=== PATIENT | female | born 1985 | race Caucasian/White ===

== ENCOUNTER 2017-03-05 06:11 | Inpatient (IN) | payer OTHER ==
[2017-03-05 06:42] VITALS: BMI 35.5
--- NOTE | 2017-03-05 08:21 | PRG ---
DATE OF SERVICE: 03/05/2017 PRIMARY OB: Dr. Brandon Mcintosh CHIEF COMPLAINT: Abdominal pains. HISTORY OF PRESENT ILLNESS: The patient is a 31-year-old female with an intrauterine at 39 weeks and 2 days who was seen yesterday for uterine contractions and sent home. She has returned with increasing pain and frequency with her contractions since about 3:00 this morning. She denies any leakage of fluid, but has had some bloody show. PAST MEDICAL HISTORY: Recurrent loss. PAST SURGICAL HISTORY: She had an appendectomy and and LEEP procedure at age 15. SOCIAL HISTORY: Denies drug, alcohol or tobacco use. 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 ALLERGIES: She reports an allergy to Prozac or other SSRI and reports having had a seizure with it. OB LABS: She is GBS negative. One hour Glucola was 140 with a normal 3 hour to follow. Third trimester HIV is nonreactive. Hepatitis B surface antigen is nonreactive, HIV first trimester is nonreactive, RPR first trimester is nonreactive. She is rubella immune. GC and chlamydia are negative. MEDICATIONS: Patient is on vitamins and a baby aspirin. REVIEW OF SYSTEMS: Per HPI. PHYSICAL EXAMINATION: VITAL SIGNS: Blood pressure is 125/80, heart rate of 93, respiratory rate of 18 , satting 97% on room air, temperature 99.0. GENERAL: She appears to be in some distress, particularly with the contractions. She is alert and oriented, and cooperative and pleasant to interact with. HEENT: Normocephalic, atraumatic. LUNGS: Clear to auscultation bilaterally. HEART: Regular rate and rhythm. ABDOMEN: Soft in between contractions. EXTREMITIES: Nontender, nonedematous. CERVICAL EXAM: 3, 50 and 0 station. heart tracing for threatened labor, baseline is noted to be in the 120s with moderate long-term variability, positive accelerations, no decelerations. Her contractions are about every 3-4 minutes apart now. ASSESSMENT AND PLAN: The patient is a 31-year-old female with an intrauterine at 39 weeks and 2 days who is here having painful contractions and has made cervical change since yesterday. She has a history of and desires a trial of labor after . Her doctor, Dr. Mcintosh, has been notified of her presence so we will plan on reexamining her in a couple hours. She has been offered pain medication and has also been given some instructions with the nurse present about how she may be able to improve her pain with position changes in and maneuvers as she has been experiencing a lot of back labor. Dr. Corea will be coming on as the OB Hospitalist by the time the patient is reevaluated. ROSA MARIA
[2017-03-05] MEDS ORDERED: Ibuprofen 800 MG TAB PO PRN (13:42)
[2017-03-05] MEDS ORDERED: LR / Pitocin 40 units/1000 ml 1,000 ML IV PRN (13:42)
[2017-03-05] MEDS ORDERED: Promethazine HCl 25 MG/ML VIAL IM PRN ×2 (13:42→15:45)
[2017-03-05] MEDS ORDERED: Lidocaine 1% (PF) 30 ML VIAL SC PRN (13:42)
[2017-03-05] MEDS ORDERED: Ondansetron HCl/PF 4 MG/2 ML Vial IVP PRN ×2 (13:42→15:45)
[2017-03-05] MEDS ORDERED: HYDROcodone/Acetaminophen 5/325 mg Tablet PO PRN (13:42)
[2017-03-05] MEDS ORDERED: Misoprostol 200 MCG TAB PR PRN (13:42)
[2017-03-05] MEDS ORDERED: Fentanyl 4 mcg/Marc 0.1% Cadd 100 ML ONE (14:03)
[2017-03-05] MEDS: Lactated Ringer's 1,000 ML IV SCH ×2 (14:05→15:59)
[2017-03-05 14:19] LABS: Mean Platelet Volume 9.8 fL (7.4-10.4); Red Blood Cell (RBC) Count 4.32 mill/uL (4.20-5.40); White Blood Cell (WBC) Count 11.8 thou/uL (4.8-10.8)
[2017-03-05] MEDS ORDERED: Bupivacaine 0.75% W/DEXTROSE 8.25% 2 ML AMP ONE (15:07)
[2017-03-05] MEDS ORDERED: Fentanyl 100 MCG/2 ML VIAL ONE ×2 (15:07→21:24)
[2017-03-05] MEDS: Fentanyl 4mcg/Marcaine 0.1% Cassette 100 ML EPIDURAL SCH ×2 (15:43→22:45)
[2017-03-05] MEDS ORDERED: diphenhydrAMINE HCl 50 MG/ML 1 ML VIAL IVP PRN (15:45)
[2017-03-05] MEDS ORDERED: Eucerin (Mineral Oil/Petrolatum,White) 30 gm Jar TOP PRN (15:45)
[2017-03-05] MEDS ORDERED: Acetaminophen 325 MG TAB PO PRN (15:45)
[2017-03-05] MEDS ORDERED: Lactated Ringer's 500 ML IV PRN (15:45)
[2017-03-05] MEDS ORDERED: Naloxone HCl 0.4 mg/ml Vial IVP PRN ×2 (15:45)
[2017-03-05] MEDS ORDERED: Communication Order-Pharmacy FS SCH (15:45)
[2017-03-05] MEDS ORDERED: ePHEDrine/0.9% NaCl/PF SYRINGE 50 mg/10 ml SLOW IVP PRN (15:45)
[2017-03-05] MEDS ORDERED: Bupivacaine 0.75% W/DEXTROSE 8.25% 2 ML AMP NERVE BLCK ONE (15:46)
[2017-03-05] MEDS ORDERED: Fentanyl 100 MCG/2 ML VIAL I-THECAL ONE (15:46)
[2017-03-06] MEDS: Lactated Ringer's 1,000 ML IV SCH (00:04)
[2017-03-06] MEDS: Fentanyl 4mcg/Marcaine 0.1% Cassette 100 ML EPIDURAL SCH (04:02)
[2017-03-06] MEDS ORDERED: LR / Pitocin 40 units/1000 ml 1,000 ML IV SCH (05:59)
[2017-03-06] MEDS ORDERED: diphenhydrAMINE HCl 25 MG CAP PO PRN (05:59)
[2017-03-06] MEDS ORDERED: Adacel (T-DAP) 0.5 ML VIAL IM ONE (05:59)
[2017-03-06] MEDS ORDERED: Bisacodyl 10 MG SUPP PR PRN (05:59)
[2017-03-06] MEDS ORDERED: Milk Of Magnesia 30 ML UDCUP PO PRN (05:59)
[2017-03-06] MEDS ORDERED: Lanolin Ointment 7 GM TUBE TOP PRN (05:59)
--- NOTE | 2017-03-06 06:21 | OP ---
DATE OF PROCEDURE: 03/06/2017 at 5:00 a.m. PREOPERATIVE DIAGNOSES: 1. Term . 2. Active labor. POSTOPERATIVE DIAGNOSES: 1. Term . 2. Active labor. PROCEDURE: Vacuum extraction with repair of third degree midline episiotomy. ANESTHESIA: Epidural. SURGEON: Brandon Mcintosh M.D. PROCEDURE: This 31-year-old white female, taken to delivery room, complete and pushing. The patient prepped and draped sterilely. With the use of a vacuum delivered the baby from an OA positi on. Baby did breathe and cry vigorously upon delivery. One pull was all that was necessary. Deliv ered the placenta, 3-vessel intact. The cord was clamped and cut upon delivering of the baby. Cristine mated blood loss was 400 mL The third degree midline laceration was repaired with 3-0 Vicryl and 2 vaginal wall lacerations were repaired with 2 interrupted 3-0 chromic suture. The 3rd was repaired with 3-0 Vicryl in the midline with 3-0 chromic. Mother and baby did well.
[2017-03-06] MEDS: HYDROcodone/Acetaminophen 5/325 mg Tablet PO PRN ×2 (07:31→16:51)
[2017-03-06] MEDS: Docusate (Surfak) 240 MG CAP PO SCH ×2 (08:57→21:41)
[2017-03-06] MEDS: Prenatal Vitamin 1 TAB PO SCH (08:57)
[2017-03-06] MEDS: Ferrous Sulfate 325 MG TAB PO SCH ×2 (08:58→17:24)
[2017-03-06] MEDS ORDERED: Benzocaine/Menthol 20-0.5% 60 ML CAN TOP PRN (14:10)
[2017-03-06] MEDS: Ibuprofen 800 MG TAB PO SCH ×2 (14:16→21:41)
[2017-03-07] MEDS: HYDROcodone/Acetaminophen 5/325 mg Tablet PO PRN ×2 (02:21→09:29)
[2017-03-07 02:37] VITALS: BP 106/68
[2017-03-07] MEDS ORDERED: Bupivacaine HCl 0.5%/Epinephrine 1:200,000/PF 30 ml Vial ONE (06:03)
[2017-03-07] MEDS ORDERED: Lidocaine 2% PF 10 ML AMP (For Epidural Use) ONE (06:03)
[2017-03-07 06:10] LABS: Hematocrit 28.1 % (36.0-47.0); Mean Platelet Volume 9.9 fL (7.4-10.4); White Blood Cell (WBC) Count 11.5 thou/uL (4.8-10.8)
[2017-03-07] MEDS: Ibuprofen 800 MG TAB PO SCH (06:14)
[2017-03-07 09:24] VITALS: TEMP 98.7
[2017-03-07] MEDS: Ferrous Sulfate 325 MG TAB PO SCH (09:29)
[2017-03-07] MEDS: Docusate (Surfak) 240 MG CAP PO SCH (09:30)
[2017-03-07] MEDS: Prenatal Vitamin 1 TAB PO SCH (09:30)
== END 2017-03-07 12:45 | disposition home or self-care (01) | DRG 775 ==
LOC: L&D/OP 06:11 → L&D 13:27 → 3SW 03-06 06:48
PROVIDERS: ADMIT Family Medicine; ATTEND Family Medicine
PROC: 10907ZC Drainage of Amniotic Fluid, Therapeutic from Products of Conception, Via Natural or Artificial Opening (ICD-10-PCS; 2017-03-05)
PROC: 10D07Z6 Extraction of Products of Conception, Vacuum, Via Natural or Artificial Opening (ICD-10-PCS; principal; 2017-03-06)
PROC: 0DQR0ZZ Repair Anal Sphincter, Open Approach (ICD-10-PCS; 2017-03-06)
PROC: 0UQGXZZ Repair Vagina, External Approach (ICD-10-PCS; 2017-03-06)
DX: O34.219 Maternal care for unspecified type scar from previous cesarean delivery (principal); O63.1 Prolonged second stage (of labor); O70.20 Third degree perineal laceration during delivery, unspecified; O70.0 First degree perineal laceration during delivery; Z3A.39 39 weeks gestation of pregnancy; Z37.0 Single live birth
CPT/HCPCS: 36415; 85027; 86780; 87340; 90715; J0670; J2001; J2405; J3010; J3490

== ENCOUNTER 2018-01-16 13:35 | Emergency (ER) | payer OTHER ==
[2018-01-16] MEDS ORDERED: Ondansetron HCl/PF 4 MG/2 ML Vial ONE (14:16)
[2018-01-16 14:29] LABS: #Basophils 0.1 thou/uL (0.0-0.2); #Eosinphils 0.1 thou/uL (0.0-0.7); #Lymphocytes 0.7 thou/uL (1.20-3.40); #Monocytes 0.3 thou/uL (0.11-0.59); #Neutrophils 8.5 thou/uL (1.40-6.50); %Basophils 0.6 % (0.0-1.0); %Eosinophils 0.5 % (0.0-10.0); %Monocytes 3.6 % (0.0-10.0); %Neutrophils 88.4 % (42.0-75.0); Hemoglobin 13.3 g/dL (12.0-16.0); Mean Corpuscular HGB CONC 35.6 g/dL (32.0-36.0); Mean Corpuscular Hemoglobin 28.8 pg (27.0-31.0); Mean Corpuscular Volume 80.9 fL (78.0-98.0); Mean Platelet Volume 9.8 fL (7.4-10.4); Platelet Count 190 thou/uL (130-400); RBC Distribution Width 12.4 % (11.5-14.5); Red Blood Cell (RBC) Count 4.62 mill/uL (4.20-5.40); White Blood Cell (WBC) Count 9.7 thou/uL (4.8-10.8)
[2018-01-16 14:43] LABS: ALT (SGPT) 18 U/L (8-55); AST (SGOT) 12 U/L (5-34); Albumin 3.9 g/dL (3.5-5.0); Alkaline Phosphatase 45 U/L (40-150); Anion Gap 12 mmol/L (10-20); BUN (Urea Nitrogen) 13 mg/dL (7.0-18.7); Bilirubin, Total 0.6 mg/dL (0.2-1.2); Calc. Creatinine Clearance 0 mL/min (70-130); Calcium 8.8 mg/dL (7.8-10.44); Carbon Dioxide 21 mmol/L (22-29); Chloride 110 mmol/L (98-107); Estimated GFR-MDRD 90; Globulin 2.6 g/dL (2.4-3.5); Glucose 106 mg/dL (70-105); Lipase 40 U/L (8-78); Magnesium 1.9 mg/dL (1.6-2.6); Potassium 3.6 mmol/L (3.5-5.1); Protein, Total 6.5 g/dL (6.0-8.3); Sodium 139 mmol/L (136-145)
[2018-01-16 15:35] LABS: Bilirubin Negative (Negative); Blood, Urine Negative (Negative); Clarity Slightly Cloudy (Clear); Glucose, Urine (Dipstick) Negative (Negative); Leukocyte Negative (Negative); Nitrite Negative (Negative); Protein, Urine (Dipstick) Negative (Neg-Trace); Specific Gravity, Urine 1.025 (1.005-1.030); Urobilinogen 0.2 mg/dL (0.2-1.0); pH, Urine 5.5 (5.0-9.0)
[2018-01-16 15:36] LABS: Pregnancy Test - Urine (BHCG) Negative (Negative); Pregu Control Background? CLEAR/WHITE (CLR/WHITE); Pregu Control Bar Appear? YES (CONTROL BAR); Specific Gravity 1.025 (1.002-1.036)
== END 2018-01-16 16:05 | disposition home or self-care (01) ==
LOC: SCSER 13:35
DX: K52.9 Noninfective gastroenteritis and colitis, unspecified (principal); Z79.899 Other long term (current) drug therapy
CPT/HCPCS: 80053; 81003; 81025; 83690; 83735; 85025; 96361; 96374; J2405

== ENCOUNTER 2018-01-20 19:52 | Inpatient (IN) | payer OTHER ==
[2018-01-20] MEDS ORDERED: Ondansetron HCl/PF 4 MG/2 ML Vial ONE ×2 (20:42→21:56)
[2018-01-20 20:45] LABS: #Eosinphils 0.1 thou/uL (0.0-0.7); #Lymphocytes 0.6 thou/uL (1.20-3.40); #Monocytes 0.4 thou/uL (0.11-0.59); #Neutrophils 7.8 thou/uL (1.40-6.50); %Basophils 0.4 % (0.0-1.0); %Eosinophils 0.6 % (0.0-10.0); %Lymphocytes 6.6 % (21.0-51.0); %Monocytes 4.6 % (0.0-10.0); %Neutrophils 87.7 % (42.0-75.0); Hemoglobin 12.4 g/dL (12.0-16.0); Mean Corpuscular HGB CONC 34.2 g/dL (32.0-36.0); Mean Platelet Volume 8.6 fL (7.4-10.4); Platelet Count 190 thou/uL (130-400); RBC Distribution Width 12.4 % (11.5-14.5); Red Blood Cell (RBC) Count 4.43 mill/uL (4.20-5.40); White Blood Cell (WBC) Count 8.9 thou/uL (4.8-10.8)
[2018-01-20] MEDS ORDERED: methylPREDNISolone Acetate 40 mg/ml Vial ONE (20:45)
[2018-01-20 21:02] LABS: ALT (SGPT) 22 U/L (8-55); AST (SGOT) 16 U/L (5-34); Albumin 3.9 g/dL (3.5-5.0); Alkaline Phosphatase 49 U/L (40-150); Anion Gap 12 mmol/L (10-20); BUN (Urea Nitrogen) 14 mg/dL (7.0-18.7); Bilirubin, Total 0.6 mg/dL (0.2-1.2); Calc. Creatinine Clearance 0 mL/min (70-130); Calcium 9.2 mg/dL (7.8-10.44); Carbon Dioxide 25 mmol/L (22-29); Chloride 106 mmol/L (98-107); Estimated GFR-MDRD 81; Globulin 2.6 g/dL (2.4-3.5); Glucose 122 mg/dL (70-105); Lipase 416 U/L (8-78); Potassium 3.6 mmol/L (3.5-5.1); Protein, Total 6.5 g/dL (6.0-8.3); Sodium 139 mmol/L (136-145)
[2018-01-20] MEDS ORDERED: Morphine 4 MG/ML Carpuject ONE (21:49)
[2018-01-20] MEDS ORDERED: Acetaminophen 650 MG Suppository ONE (22:16)
[2018-01-21] MEDS ORDERED: Ondansetron ODT 4 MG TAB SL PRN ×2 (00:43→08:30)
[2018-01-21] MEDS ORDERED: Ondansetron HCl/PF 4 MG/2 ML Vial IVP PRN (00:43)
[2018-01-21] MEDS: Sodium Chloride 0.9% 1,000 ML IV SCH ×3 (00:57→16:59)
[2018-01-21] MEDS: Morphine 4 MG/ML VIAL SLOW IVP PRN ×6 (00:57→20:52)
[2018-01-21 01:42] VITALS: BMI 28.2
[2018-01-21 08:55] LABS: #Lymphocytes 0.4 thou/uL (1.20-3.40); #Monocytes 0.1 thou/uL (0.11-0.59); #Neutrophils 5.7 thou/uL (1.40-6.50); %Eosinophils 0.1 % (0.0-10.0); %Lymphocytes 5.9 % (21.0-51.0); %Monocytes 1.5 % (0.0-10.0); %Neutrophils 92.4 % (42.0-75.0); Hemoglobin 11.4 g/dL (12.0-16.0); Mean Corpuscular HGB CONC 33.3 g/dL (32.0-36.0); Mean Corpuscular Hemoglobin 29.3 pg (27.0-31.0); Mean Corpuscular Volume 87.9 fL (78.0-98.0); Platelet Count 202 thou/uL (130-400); RBC Distribution Width 13.1 % (11.5-14.5); Red Blood Cell (RBC) Count 3.89 mill/uL (4.20-5.40); White Blood Cell (WBC) Count 6.1 thou/uL (4.8-10.8)
[2018-01-21 09:19] LABS: ALT (SGPT) 19 U/L (8-55); AST (SGOT) 13 U/L (5-34); Albumin 3.3 g/dL (3.5-5.0); Alkaline Phosphatase 42 U/L (40-150); Anion Gap 10 mmol/L (10-20); BUN (Urea Nitrogen) 10 mg/dL (7.0-18.7); Bilirubin, Total 0.5 mg/dL (0.2-1.2); Calc. Creatinine Clearance 130 mL/min (70-130); Calcium 8.5 mg/dL (7.8-10.44); Carbon Dioxide 24 mmol/L (22-29); Chloride 109 mmol/L (98-107); Estimated GFR-MDRD 90; Globulin 2.4 g/dL (2.4-3.5); Glucose 123 mg/dL (70-105); Lipase 194 U/L (8-78); Potassium 4.2 mmol/L (3.5-5.1); Protein, Total 5.7 g/dL (6.0-8.3); Sodium 139 mmol/L (136-145)
--- NOTE | 2018-01-21 09:29 | HP ---
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 I then recently saw her in the office several months ago and s he had vaginal ulcer like lesions as well as in her mouth. She was also in the process of seeing an tower hand for eye discomfort. She mentioned Behcet and the patient was referred to Dr. Millan who has initiated treatment. She was on Imuran 50 mg daily, and 3 days ago this was increased to 150 mg. This was then followed by nausea, vomiting, and abdominal pain. This began suddenly yesterday whil e at work and she went home. She then presented to the ER where she was noted to have a lipase of [address] Millan was called and the patient was given 80 mg of Depo-Medrol and 40 mg of Solu-Medrol IV. This morning, she states the steroids has helped her tremendously. She is relatively pain free. S he is no longer nauseated and feeling so much better. Her skin lesions have actually improved dramat ically. PAST MEDICAL HISTORY: 1. Behcet syndrome. 2. ADD. 3. History of squamous cell cancer of the cervix, status post LEEP x2. PAST SURGICAL HISTORY: Spontaneous AB x2, history of multiple LEEP procedures, x1, D&C x1. SOCIAL HISTORY: Prior smoker, 1 pack per day. No history of alcohol use. 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 She has one son. MEDICATIONS: Imuran 150 p.o. daily, prednisone 15 mg p.o. daily. ALLERGIES: CHOCOLATE. REVIEW OF SYSTEMS: As above. PHYSICAL EXAMINATION: VITAL SIGNS: Temperature 98.0, pulse 76, respirations 16, pulse ox 90, blood pressure 98/60. GENERAL: No acute distress this morning. SKIN: With erythematous papular lesions, sporadic, throughout her extremities and trunk. No oral le sions present. HEENT: Clear. NECK: Supple. HEART: Regular rate and rhythm. LUNGS: Clear. ABDOMEN: Soft, nontender. EXTREMITIES: No edema. LABORATORY DATA: Sodium 139, potassium 3.6, creatinine 0.82. Lipase 416. White count of 8.9, H&H i s 12 and 36, platelet of 190. ASSESSMENT: 1. Behcet syndrome. 2. Acute pancreatitis secondary to Imuran. PLAN: 1. The patient was given Depo-Medrol 80 mg IM and Solu-Medrol 40 IV yesterday. Today, we will jose nue Solu-Medrol 20 mg IV q.8 hours. 2. Repeat CBC, comprehensive lipase and Amylase this morning. 3. If the patient remains asymptomatic and labs are improved, we will consider clear liquids, advanc ing diet. Hopefully, can go home soon.
[2018-01-21] MEDS ORDERED: Sodium Chloride 0.9% 10 ML ONE (13:18)
[2018-01-21] MEDS: Ondansetron HCl/PF 4 MG/2 ML Vial IVP PRN (13:21)
[2018-01-21] MEDS ORDERED: Sterile Water 10 ML ONE (20:46)
[2018-01-21] MEDS: diphenhydrAMINE 50 MG/ML VIAL IVP PRN (20:51)
[2018-01-22] MEDS: Sodium Chloride 0.9% 1,000 ML IV SCH ×2 (01:00→11:12)
[2018-01-22] MEDS: Morphine 4 MG/ML VIAL SLOW IVP PRN (04:47)
[2018-01-22] MEDS: Ondansetron HCl/PF 4 MG/2 ML Vial IVP PRN (04:47)
[2018-01-22] MEDS: diphenhydrAMINE 50 MG/ML VIAL IVP PRN (04:49)
[2018-01-22 04:54] LABS: #Lymphocytes 0.7 thou/uL (1.20-3.40); #Monocytes 0.2 thou/uL (0.11-0.59); %Basophils 0.1 % (0.0-1.0); %Eosinophils 0.1 % (0.0-10.0); %Lymphocytes 9.7 % (21.0-51.0); %Monocytes 2.6 % (0.0-10.0); %Neutrophils 87.5 % (42.0-75.0); Hemoglobin 10.9 g/dL (12.0-16.0); Mean Corpuscular HGB CONC 33.6 g/dL (32.0-36.0); Mean Corpuscular Hemoglobin 29.8 pg (27.0-31.0); Mean Corpuscular Volume 88.8 fL (78.0-98.0); Mean Platelet Volume 8.3 fL (7.4-10.4); Platelet Count 211 thou/uL (130-400); RBC Distribution Width 13.1 % (11.5-14.5); Red Blood Cell (RBC) Count 3.67 mill/uL (4.20-5.40); White Blood Cell (WBC) Count 6.8 thou/uL (4.8-10.8)
[2018-01-22 05:02] LABS: ALT (SGPT) 18 U/L (8-55); AST (SGOT) 10 U/L (5-34); Albumin 3.2 g/dL (3.5-5.0); Alkaline Phosphatase 41 U/L (40-150); Anion Gap 7 mmol/L (10-20); BUN (Urea Nitrogen) 8 mg/dL (7.0-18.7); Bilirubin, Total 0.3 mg/dL (0.2-1.2); Calc. Creatinine Clearance 137 mL/min (70-130); Calcium 8.7 mg/dL (7.8-10.44); Carbon Dioxide 24 mmol/L (22-29); Chloride 111 mmol/L (98-107); Estimated GFR-MDRD Greater than 90; Globulin 2.3 g/dL (2.4-3.5); Glucose 148 mg/dL (70-105); Lipase 80 U/L (8-78); Potassium 4.4 mmol/L (3.5-5.1); Protein, Total 5.5 g/dL (6.0-8.3); Sodium 138 mmol/L (136-145)
[2018-01-22 07:48] VITALS: BP 108/69; TEMP 98.6
--- NOTE | 2018-01-22 21:49 | DIS ---
DATE OF ADMISSION: 01/21/2018 DATE OF DISCHARGE: 01/22/2018 ADMITTING DIAGNOSIS: A flare of Behcet's syndrome. SECONDARY DIAGNOSIS: Pancreatitis from Imuran. HOSPITAL COURSE: The patient is a 32-year-old female, patient of Dr. Brandon Valerio, who w as admitted with a breakout of ulcerations from the Behcet's syndrome on her mucosal membranes and wa s also dealing with worsening abdominal pain and nausea from the Imuran that was started by Dr. Peggy morel from Rheumatology. Hospital course is essentially uneventful. Imuran was held. Her lipase init ially was 416 and was on today this morning it was 80. She tolerated breakfast this morning. All vi taylor signs essentially are stable and she is afebrile, ready to go home, so plan is to discharge home. She has medicines at home for nausea if she needs anything. She will no longer be on Imuran. She will need to follow up with Dr. Brandon Mcintosh next week for routine hospital followup and then also e will need to contact Dr. Stevenson, his office to figure out when he wants to see her because he did not give her a specific date, he wishes her to follow up with him, he just wanted her to call the of [facility] . Of note, she has plans to go to the [facility] in [place], [place] for further ewa luation of this condition. That is to happen, I believe sometime in the next month or two.
== END 2018-01-22 13:13 | disposition home or self-care (01) | DRG 545 ==
LOC: SCSER 19:52 → ONC 01-21 00:26
PROVIDERS: ADMIT Family Medicine; ATTEND Family Medicine
DX: M35.2 Behcet's disease (principal); K85.30 Drug induced acute pancreatitis without necrosis or infection; F98.8 Other specified behavioral and emotional disorders with onset usually occurring in childhood and adolescence; Z87.891 Personal history of nicotine dependence; Z85.41 Personal history of malignant neoplasm of cervix uteri; Z91.018 Allergy to other foods; T45.1X5A Adverse effect of antineoplastic and immunosuppressive drugs, initial encounter
CPT/HCPCS: 36415; 80053; 82150; 83605; 83690; 85025; 96361; 96372; 96374; 96375; 96376; A4216; J1030; J1200; J2270; J2405; J2920; Q0162

== ENCOUNTER 2018-04-20 06:36 | Outpatient (CLI) | payer OTHER ==
--- NOTE | 2018-04-20 09:31 | ULT ---
ULTRASOUND ABDOMEN: Date: 04/20/18 HISTORY: 32-year-old female with pancreatitis. FINDINGS: The liver demonstrates homogeneous echotexture without focal mass or intrahepatic ductal dilatation. The spleen measures 10.4 cm in length and is normal. No gallstones, gallbladder wall thickening, or p ericholecystic fluid is seen. The common duct measures 4.0 mm in diameter. The kidneys and visualized portions of the pancreas are unremarkable. No free fluid is seen. The visualized portions of the aor ta and IVC are normal. IMPRESSION: No evidence of cholelithiasis. POS: [facility]
== END 2018-04-20 06:37 | disposition home or self-care (01) ==
LOC: SCSULT 06:36
PROVIDERS: ATTEND Internal Medicine
DX: K85.90 Acute pancreatitis without necrosis or infection, unspecified (principal); R10.30 Lower abdominal pain, unspecified; R63.4 Abnormal weight loss; R19.4 Change in bowel habit; K92.1 Melena; M35.2 Behcet's disease
CPT/HCPCS: 76700

== ENCOUNTER 2019-04-01 11:54 | Outpatient (CLI) | payer BC, OTHER ==
--- NOTE | 2019-04-01 12:17 | RAD ---
XR Tib Fib Rt Leg 2 View: 04/01/2019 12:00 AM CLINICAL INDICATION: Pain COMPARISON: None. FINDINGS: Fracture:No fracture. Arthropathy:None of significance. Incidental findings:None of significance. IMPRESSION: 1. No acute osseous abnormality.
== END 2019-04-01 11:55 | disposition home or self-care (01) ==
LOC: BICRAD 11:54
PROVIDERS: ATTEND Family Medicine
DX: M79.604 Pain in right leg (principal)